=== PATIENT | male | born 1955 | race Caucasian/White ===

== ENCOUNTER → 2019-07-02 | Outpatient (REF) | payer OTHER, MEDICARE ==
[~2019-07-02] MED LIST: CARI1TAB7 PO; CEFD300CAP PO; FLOM0.4C39 PO; GENT0.1C2 TOP; KEFL500C17 PO; LORA-622 PO; MELO15TA28 PO; MONT10TA4 PO; POTA10808 PO; ROSU40TA4 PO; VOLT1GEL15 TOP
[2019-07-02 13:26] LABS: APPEARANCE, URINE CLEAR (CLEAR); BACTERIA, URINE AUTO NEGATIVE (NEGATIVE); BILIRUBIN, URINE AUTO NEGATIVE (NEGATIVE); BLOOD, URINE BLOOD 1+ (NEGATIVE); COLOR, URINE YELLOW (YELLOW); GLUCOSE, URINE (UA) AUTO NEGATIVE (NEGATIVE); KETONE, URINE AUTO NEGATIVE (NEGATIVE); LEUKOCYTE ESTERASE, URINE AUTO NEGATIVE (NEGATIVE); NITRITE, URINE AUTO NEGATIVE (NEGATIVE); PROTEIN, URINE AUTO NEGATIVE (NEGATIVE); RBC, URINE AUTO 5 /HPF (0-3); SPECIFIC GRAVITY URINE AUTO 1.019 (1.002-1.035); SQUAMOUS EPITHELIAL CELL UR AU 0 /HPF (0-6); UROBILINOGEN, URINE AUTO 0.2 mg/dL (0.0-2.0); WBC, URINE AUTO 1 /HPF (0-3)
== END ==
LOC: M SMT 13:06
PROVIDERS: ATTEND Nurse Practitioner Family
DX: N39.0 Urinary tract infection, site not specified (principal)
CPT/HCPCS: 81001; 87086; G0463

== ENCOUNTER → 2019-07-11 | Outpatient (CLI) | payer OTHER ==
[~2019-07-11] MED LIST changes: +PROHANCE 279.3MG/ML 15ML VIAL (A9576) As Ordered ONE; +PROHANCE 279.3MG/ML 5ML VIAL (A9576) As Ordered ONE
--- NOTE | 2019-07-12 10:12 | REP ---
Multi parametric prostate MRI without and with IV gadolinium: History: Elevated PSA. Comparisons: No comparison study. TECHNIQUE: Using a phased array surface coil, small field of view imaging was acquired using T2-weighted scans in the axial, coronal, and sagittal imaging planes. Small field of view diffusion-weighted sequences are acquired. Small field of view axial T1-weighted scans are acquired dynamically before and after the intravenous administration of 17 mL of ProHance. Imaging is reviewed on the [employer] computer aided detection system. Prostate MRI findings: Prostate dimensions are 5.2 x 4.0 x 4.3 cm, calculated prostate volume 47.15 mL. There is no evidence of pelvic adenopathy, mass, or skeletal metastatic disease. There are nodular changes and there is enlargement of the central gland consistent with BPH. Two lesions are identified of interest in the left side of the prostate gland. These are segmented and submitted for consideration of fusion directed needle biopsy procedure. Lesion #1 is in the left apical lateral peripheral zone and left apical posterior transition zone. It measures 1.9 x 1.0 x 0.7 cm with a calculated volume of 1.09 mL. It is a geographic area of low T2 signal intensity with no reduction in ADC and a type 2 enhancement curve. Clinically significant cancer is felt to be equivocal here. Lesion #2 is in the left mid posterior transition zone measuring 2.3 x 1.0 x 1.0 cm, 1.32 mL volume. This is a discrete homogeneous low signal intensity focus on T2-weighted imaging with no reduction in ADC and a type 3 enhancement curve. Clinically significant cancer is felt to be equivocal. Impression: Multi parametric prostate MRI study with two regions of interest identified within the prostate gland as above. Electronically Signed by Franki Mathews MD 07/12/2019 06:32 P
== END ==
LOC: M RAD 16:01
PROVIDERS: ATTEND Nurse Practitioner Family
DX: R97.20 Elevated prostate specific antigen [PSA] (principal)
CPT/HCPCS: 72197; A9576

== ENCOUNTER → 2019-07-15 | Outpatient (CLI) | payer MEDICARE, OTHER ==
[~2019-07-15] MED LIST changes: +ISOVUE-370 76% 100ML VIAL (Q9967) As Ordered ONE; -PROHANCE 279.3MG/ML 15ML VIAL (A9576) As Ordered ONE; -PROHANCE 279.3MG/ML 5ML VIAL (A9576) As Ordered ONE
--- NOTE | 2019-07-15 11:03 | REP ---
CT UROGRAPHY: CT abdomen and pelvis with out and dual-phase postcontrast scanning. HISTORY: Microscopic hematuria. CT CONTRAST DOSE: 100 mL of intravenous Isovue [address] study. FINDINGS: Preliminary digital teacher theater arts radiograph shows an unremarkable bowel gas pattern. The lung bases are clear on axial CT images. Noncontrast study demonstrates no evidence of intrarenal calculus on either side. There is no hydronephrosis. The liver and the spleen are normal in size homogeneous in texture. The gallbladder is unremarkable. No pancreatic abnormality is seen. Normal adrenal glands are observed. There is pancolonic diverticulosis. There is mural thickening with pericolonic fat stranding in the sigmoid colon associated with diverticular change consistent with acute diverticulitis. No abscess or free air is seen. This inflammation of the sigmoid colon is just to the right of midline and just above the bladder dome. Prostate and seminal vesicles are intact. No bladder calculus is seen. No bladder mass lesion is observed. Normal appendix is seen. No renal mass is observed on postcontrast images. Delayed images show no filling defect in the urinary bladder or ureteropelvic collecting systems. Study is otherwise unremarkable. IMPRESSION: 1. Evidence of acute diverticulitis affecting the sigmoid colon with pericolonic fat streaking and mural thickening. No abscess or free air. Pancolonic diverticulosis. 2. Prostate enlargement. Otherwise negative CT urography. Electronically Signed by Franki Mathews MD 07/15/2019 05:41 P
== END ==
LOC: M RAD 09:31
PROVIDERS: ATTEND Nurse Practitioner Family
DX: R31.29 Other microscopic hematuria (principal)
CPT/HCPCS: 74178; Q9967

== ENCOUNTER → 2019-07-23 | Outpatient (CLI) | payer OTHER ==
[~2019-07-23] MED LIST changes: -ISOVUE-370 76% 100ML VIAL (Q9967) As Ordered ONE
--- NOTE | 2019-07-23 14:21 | REPPI ---
Prostate sonography: History: Elevated PSA. Prior prostate MRI study. Sonographic findings: Transrectal sonographic guidance is provided to Dr. Guzman who performed trans rectal ultrasound guided needle biopsy procedure . Electronically Signed by Franki Mathews MD 07/23/2019 02:11 P
== END ==
LOC: M SMT PRO 07:52
PROVIDERS: ATTEND Urology
DX: R97.20 Elevated prostate specific antigen [PSA] (principal)
CPT/HCPCS: 76942; G0416

== ENCOUNTER → 2019-07-30 | Outpatient (REF) | payer OTHER | LOC: M SMT 13:23 | PROVIDERS: ATTEND Urology | DX: N32.89 Other specified disorders of bladder (principal) ==

== ENCOUNTER → 2019-08-09 | Outpatient (REF) | payer OTHER ==
[2019-08-09 13:58] LABS: APPEARANCE, URINE CLEAR (CLEAR); BACTERIA, URINE AUTO NEGATIVE (NEGATIVE); BILIRUBIN, URINE AUTO NEGATIVE (NEGATIVE); BLOOD, URINE BLOOD 1+ (NEGATIVE); COLOR, URINE YELLOW (YELLOW); GLUCOSE, URINE (UA) AUTO NEGATIVE (NEGATIVE); KETONE, URINE AUTO NEGATIVE (NEGATIVE); LEUKOCYTE ESTERASE, URINE AUTO TRACE (NEGATIVE); NITRITE, URINE AUTO NEGATIVE (NEGATIVE); PROTEIN, URINE AUTO NEGATIVE (NEGATIVE); RBC, URINE AUTO 3 /HPF (0-3); SPECIFIC GRAVITY URINE AUTO 1.013 (1.002-1.035); SQUAMOUS EPITHELIAL CELL UR AU 0 /HPF (0-6); UROBILINOGEN, URINE AUTO 0.2 mg/dL (0.0-2.0); WBC, URINE AUTO 2 /HPF (0-3)
== END ==
LOC: M SMT 13:19
PROVIDERS: ATTEND Urology
DX: N39.0 Urinary tract infection, site not specified (principal)

== ENCOUNTER → 2019-08-15 | Outpatient (CLI) | payer OTHER | LOC: M SLEEP 20:00 | PROVIDERS: ATTEND Nurse Practitioner Family | DX: R06.83 Snoring (principal) ==

== ENCOUNTER → 2019-10-31 | Outpatient (CLI) | payer OTHER ==
--- NOTE | 2019-11-06 11:08 | SLEEPCENT ---
DATE OF PROCEDURE: 10/31/2019 INTERPRETATION: Nocturnal polysomnography was performed for the titration of pressure therapy in this patient with obstructive sleep apnea syndrome. Apnea-hypopnea index 15.5. For testing the patient was fit with a [employer] ComfortGel nasal mask of petite size, 4 cm of water pressure was applied to the circuit, and the lights were extinguished. 7 hours and 45 minutes of data were reviewed. There were 315 minutes of sleep identified. Sleep latency was normal at 6.5 minutes. REM sleep was delayed at 185 minutes. Sleep architecture remained somewhat fragmented and there was a period of wake late in the study for overall sleep efficiency of 69%. The patient's electrocardiogram showed a sinus rhythm with small complexes. Average heart rate 56 beats per minute. EEG showed normal waveforms for awake and sleep. Respiratory events were best palliated with CPAP of pressure of +8. There was some activity noted in the limb EMG leads. Limb movement arousal index was 8.2. IMPRESSION: Obstructive sleep apnea syndrome (G47.33) RECOMMENDATIONS: Nightly use of pressure therapy 8 cm of water.
== END ==
LOC: M SLEEP 20:00
PROVIDERS: ATTEND Nurse Practitioner Family
DX: G47.33 Obstructive sleep apnea (adult) (pediatric) (principal)

== ENCOUNTER → 2022-01-17 | Outpatient (CLI) | payer OTHER ==
[~2022-01-17] MED LIST changes: +ALLO100T PO; -MONT10TA4 PO; +MONT10TA97 PO; +VITAD400CA PO
== END ==
LOC: M LABSMTC 09:33
PROVIDERS: ATTEND Anesthesiology
DX: Z01.818 Encounter for other preprocedural examination (principal); Z11.52 Encounter for screening for COVID-19

== ENCOUNTER → 2022-02-17 | Outpatient (CLI) | payer OTHER | LOC: M LABSMTC 10:01 | PROVIDERS: ATTEND Anesthesiology | DX: Z01.812 Encounter for preprocedural laboratory examination (principal); Z20.822 Contact with and (suspected) exposure to COVID-19 ==

== ENCOUNTER 2022-02-22 07:40 | Day surgery (SDC) | payer OTHER ==
[~2022-02-22] VITALS: Ht 170.2 cm; Wt 74.4 kg
[~2022-02-22 07:40] MED LIST changes: +NS 1,000 ML IV ONE
[2022-02-22] MEDS ORDERED: LIDOCAINE 2% 100MG/5ML SDV (FOR ANES.) As Ordered ONE (09:01)
[2022-02-22] MEDS ORDERED: propofoL 200 MG/20 ML VIAL As Ordered ONE (09:01)
[2022-02-22 10:15] VITALS: BP 139/77
== END 2022-02-22 10:20 | disposition home or self-care (01) ==
LOC: M OPP 07:40
PROVIDERS: ATTEND Surgery
DX: Z12.11 Encounter for screening for malignant neoplasm of colon (principal); Z86.010 Personal history of colon polyps; Z80.0 Family history of malignant neoplasm of digestive organs; D12.3 Benign neoplasm of transverse colon; K64.1 Second degree hemorrhoids; K57.30 Diverticulosis of large intestine without perforation or abscess without bleeding; K63.89 Other specified diseases of intestine; Z79.2 Long term (current) use of antibiotics; Z79.899 Other long term (current) drug therapy; Z99.89 Dependence on other enabling machines and devices; G47.30 Sleep apnea, unspecified; M15.0 Primary generalized (osteo)arthritis; M10.062 Idiopathic gout, left knee; M10.061 Idiopathic gout, right knee; N40.0 Benign prostatic hyperplasia without lower urinary tract symptoms; Z87.442 Personal history of urinary calculi; F17.200 Nicotine dependence, unspecified, uncomplicated